=== PATIENT | female | born 1985 | race Caucasian/White ===

== ENCOUNTER → 2018-11-06 | Emergency (ER) | payer BC, OTHER ==
--- NOTE | 2018-11-06 13:46 | ED ---
Lower Extremity - HPI Summary HPI Summary: 33-year-old year old female presents with right ankle and left knee pain today. states that she tripped and twisting her right ankle and fell onto her left knee. She is able to ambulate with pain. She states she inverted her right ankle. Has an abrasion noted to left knee. No head injury or neck or back pain. No other injury. Has no previous fracture to the area. Has no medical conditions. - History of Current Complaint Chief Complaint: EDFall Stated Complaint: RIGHT LEG PAIN Time Seen by Provider: 11/06/18 13:27 Pain Intensity: 5 - Allergies/Home Medications Allergies/Adverse Reactions: Allergies Allergy/AdvReac Type Severity Reaction Status Date / Time Iodine and Iodide Containing Allergy Rash Verified 11/06/18 13:18 Produc latex Allergy Rash Verified 11/06/18 13:18 ALL ADHESIVE Allergy Rash Uncoded 11/06/18 13:18 CEDAR Allergy Difficulty Uncoded 11/06/18 13:18 Breathing PMH/Surg Hx/FS Hx/Imm Hx Endocrine/Hematology History: Reports: Hx Anemia - NO PROBLEMS Denies: Hx Diabetes Cardiovascular History: Denies: Hx Hypertension, Hx Pacemaker/ICD Respiratory History: Reports: Hx Asthma - RESCUE INHALER GI History: Reports: Hx Gastroesophageal Reflux Disease - NOT TAKING ANYTHING NOW History: Denies: Hx Renal Disease Musculoskeletal History: Reports: Hx Back Problems Sensory History: Reports: Hx Contacts or Glasses - GLASSES Denies: Hx Hearing Aid Opthamlomology History: Reports: Hx Contacts or Glasses - GLASSES Neurological History: Reports: Hx Migraine - WEEKLY, Other Neuro Impairments/ Disorders - PAIN CLINIC PT Psychiatric History: Denies: Hx Panic Disorder - Surgical History Surgery Procedure, Year, and Place: 11[place] [facility] [place] [facility] [place] Anesthesia Reactions: No Infectious Disease History: No Infectious Disease History: Denies: Traveled Outside the [place] in Last 30 Days - Social History Alcohol Use: Occasionally Alcohol Amount: 5 Substance Use Type: Reports: None Smoking Status (MU): Never Smoked Tobacco Review of Systems Negative: Fever Negative: Chest Pain Negative: Shortness Of Breath Positive: Myalgia - right ankle and left knee pain All Other Systems Reviewed And Are Negative: Yes Physical Exam Triage Information Reviewed: Yes Vital Signs On Initial Exam: Initial Vitals Temp Pulse Resp BP Pulse Ox 99.3 F 90 18 156/99 100 11/06/18 13:15 05/23/19 13:15 11/06/18 13:15 11/06/18 13:15 11/06/18 13:15 Vital Signs Reviewed: Yes Appearance: Positive: Well-Appearing Skin: Positive: Warm, Dry Head/Face: Positive: Normal Head/Face Inspection Eyes: Positive: Normal, Conjunctiva Clear ENT: Positive: Pharynx normal Respiratory/Lung Sounds: Positive: Clear to Auscultation, Breath Sounds Present Cardiovascular: Positive: Normal, RRR Musculoskeletal: Positive: Limited @ - right ankle, Other - abrasion to left knee, good pulses, tenderness left knee, tenderness medial malleolus right ankle Neurological: Positive: Normal Psychiatric: Positive: Normal Diagnostics - Vital Signs Vital Signs Temp Pulse Resp BP Pulse Ox 11/06/18 13:15 99.3 F 90 18 156/99 100 - Laboratory Lab Statement: Any lab studies that have been ordered have been reviewed, and results considered in the medical decision making process. - Radiology ankle Radiology Interpretation Completed By: Radiologist Summary of Radiographic Findings: IMPRESSION: SOFT TISSUE SWELLING, NO FRACTURE IS SEEN. knee Radiology Interpretation Completed By: Radiologist Summary of Radiographic Findings: IMPRESSION: NO EVIDENCE FOR FRACTURE. Lower Extremity Course/Dx - Course Course Of Treatment: 33-year-old year old female presents with right ankle and knee pain today. states that she tripped and twisting her right ankle and fell onto her left knee. She is able to ambulate with pain. She states she inverted her right ankle. Has an abrasion noted to left knee. No head injury or neck or back pain. No other injury. Has no previous fracture to the area. Has no medical conditions. On exam tenderness over medial aspect of right ankle. Neurovascular intact. Tenderness over left patella. X-ray shows no fracture. told to treat with rice. patient understand and agrees with plan. - Diagnoses Differential Diagnosis/HQI/PQRI: Positive: Fracture (Closed), Sprain, Strain Provider Diagnoses: Right ankle pain, Left knee pain Discharge - Sign-Out/Discharge Documenting (check all that apply): Patient Departure Patient Received Moderate/Deep Sedation with Procedure: No - Discharge Plan Condition: Good Disposition: HOME Patient Education Materials: R.I.C.E. Treatment (ED) Referrals: Allen Monzon MD [Primary Care Provider] - Additional Instructions: Stay off ankle as much as possible Ice, elevate, keep in LIZETH Ibuprofen every 6 hours for pain Follow up with primary if no improvement Return to ED if develop or any new or worsening symptoms - Billing Disposition and Condition Condition: GOOD Disposition: Home
--- OUTSIDE RECORDS SUMMARY | 2018-11-06 14:31 | XMS REPORT | Continuity of Care Document ---
:1985 External Reference #:[id number] Author Name Damián Yip, OD Address [address] [place] [address] Care Team Providers Name Role Phone Allen Monzon MD Care Team Information Junior Buyer Unavailable Nicolás WARNER, Allen Primary Care Physician Unavailable Payers Date Identification Numbers Payment Provider Subscriber Effective: 2012 Policy Number: [id number] /BS [employer] Ppo Fatoumata Douglass PayID: [id number] [address] [address] [place] [address] Problems Active Problems Provider Date Open-angle glaucoma DR. Rosario King O.D. Onset: 07/07/[address] Rosario King O.D. Onset: 08/17/2013 Tear film insufficiency Ryland Clarke M.D. Onset: 08/25/2014 Primary open-angle glaucoma, mild stage Ryland Clarke M.D. Onset: 2014 Superficial punctate keratitis Ryland Clarke M.D. Onset: 12/30/2015 Family History Date Family Member(s) Observation Comments General Cancer General Diabetes General Heart Disease General Brother, Uncle Father Cancer Mother Noncontributory Social History Type Date Description Comments Sex Unknown ETOH Use Occasionally consumes alcohol Tobacco Use Start: Unknown Patient has never smoked Smoking Status Reviewed: 11/04/18 Patient has never smoked Allergies, Adverse Reactions, Alerts Active Allergies Reaction Severity Comments Date Fentanyl 07/07/2013 Seasonal 02/23/2014 Latanoprost 07/07/2018 Medications Active Medications SIG Qnty Indications Ordering Provider Date Combigan one drop twice 15ml Damián Yip, OD 07/07/2018 0.2-0.5% a day both eyes Solution Restasis Multidose 1 drop both 5.5units Damián Yip, OD 06/18/2017 eyes twice a 0.05% Emulsion day Zyrtec Allergy DR. Rosario King, 07/07/2013 O.D. Capsules Sudafed [address] Rosario King, 07/07/2013 O.D. Flexi Joint Unknown Tablets Mucinex Unknown Lyrica Unknown 50mg Capsules History Medications Refresh P.M. 14" ribbon 3.500gm Damián Yip, 05/31/2017 - applied to OD 11/04/2018 Ointment ocular surface every night at bedtime both eyes Refresh P.M. 14" ribbon 3.500gm Damián Phi, 05/30/2017 - applied to OD 05/31/2017 Ointment ocular surface every night at bedtime both eyes Timolol Maleate One drop in both 5units Damián Yip, 05/17/2017 - eyes every OD 07/07/2018 0.5% Solution morning Timolol Maleate 1 drops Qam OU 30ml Ryland Clarke, 04/04/2016 - M.D. 05/17/2017 0.5% Solution Zioptan 1 drops both 30units H40.11x1 Ryland Clarke, 01/27/2016 - 0.0015% eyes every day M.D. 04/04/2016 Solution Latanoprost 1 drops both 7.5ml H52.13 Ryland Clarke, 09/05/2015 - 0.005% eyes every night M.D. 01/28/2017 Solution Latanoprost Instill 1 Drop 2.5units Damián Guillory, 07/07/2013 - 0.005% Into Each Eye O.D. 09/05/2015 Solution Every Night as Directed Vicodin Unknown - Tablets 11/04/2018 Zofran Unknown - Tablets 11/04/2018 Nasonex Unknown - 50mcg/Act 11/04/2018 Suspension Vital Signs Date Vital Result Comment 11/04/2018 2:26pm Intraocular Pressure Right Eye 18 mmHg Intraocular Pressure Left Eye 19 mmHg 08/07/2018 8:44am Intraocular Pressure Right Eye 20 mmHg Intraocular Pressure Left Eye 21 mmHg 07/07/2018 3:07pm Intraocular Pressure Right Eye 23 mmHg Intraocular Pressure Left Eye 24 mmHg 02/24/2018 9:20am Intraocular Pressure Right Eye 23 mmHg Intraocular Pressure Left Eye 23 mmHg 09/30/2017 1:29pm Intraocular Pressure Right Eye 19 mmHg Intraocular Pressure Left Eye 19 mmHg 05/30/2017 9:26am Intraocular Pressure Right Eye 17 mmHg Intraocular Pressure Left Eye 16 mmHg 01/28/2017 9:18am Intraocular Pressure Right Eye 16 mmHg Intraocular Pressure Left Eye 15 mmHg 09/28/2016 10:09am Intraocular Pressure Right Eye 16 mmHg Intraocular Pressure Left Eye 15 mmHg 05/28/2016 8:23am Intraocular Pressure Right Eye 17 mmHg Intraocular Pressure Left Eye 16 mmHg 04/04/2016 9:19am Intraocular Pressure Right Eye 16 mmHg Intraocular Pressure Left Eye 15 mmHg 01/27/2016 3:12pm Intraocular Pressure Right Eye 19 mmHg Intraocular Pressure Left Eye 19 mmHg 12/09/2015 3:28pm Intraocular Pressure Right Eye 19 mmHg Intraocular Pressure Left Eye 19 mmHg 09/05/2015 2:49pm Intraocular Pressure Right Eye 20 mmHg Intraocular Pressure Left Eye 20 mmHg 06/03/2015 11:22am Intraocular Pressure Right Eye 21 mmHg Intraocular Pressure Left Eye 21 mmHg 03/11/2015 3:03pm Intraocular Pressure Right Eye 19 mmHg Intraocular Pressure Left Eye 19 mmHg 12/01/2014 2:12pm Intraocular Pressure Right Eye 18 mmHg Intraocular Pressure Left Eye 19 mmHg 08/25/2014 10:32am Intraocular Pressure Right Eye 19 mmHg Intraocular Pressure Left Eye 20 mmHg 05/25/2014 8:12am Intraocular Pressure Right Eye 18 mmHg Intraocular Pressure Left Eye 18 mmHg 02/23/2014 9:19am Intraocular Pressure Right Eye 17 mmHg Intraocular Pressure Left Eye 18 mmHg 11/16/2013 8:34am Intraocular Pressure Right Eye 14 mmHg Intraocular Pressure Left Eye 16 mmHg Cornea Thickness Left Eye 592 m Cornea Thickness Right Eye 579 m Pachymetry adjusted IOP Right Eye -3 Pachymetry adjusted IOP Left Eye -2 08/17/2013 3:47pm Intraocular Pressure Right Eye 15 mmHg Intraocular Pressure Left Eye 15 mmHg 07/07/2013 8:10am Intraocular Pressure Right Eye 17 mmHg Intraocular Pressure Left Eye 17 mmHg Procedures Date Code Description Status 11/04/2018 49060 Fundus Photography W/Interpretation & Report Completed 11/04/2018 84037 Refraction Completed 11/04/2018 36952 Eye Exam Est Comprehensive Completed 07/07/2018 47536 Oct, Optic Nerve Completed 07/07/2018 82121 Eye Exam Est Intermediate Completed 02/24/2018 44207 Visual Field Exam Extended, Unilateral Or Bilateral Completed 02/24/2018 45841 Eye Exam Est Intermediate Completed 09/30/2017 92255 Fundus Photography W/Interpretation & Report Completed 09/30/2017 66487 Eye Exam Est Intermediate Completed 05/30/2017 20206 Eye Exam Est Intermediate Completed 05/30/2017 88711 Oct, Optic Nerve Completed 01/28/2017 21988 Visual Field Exam Extended, Unilateral Or Bilateral Completed 01/28/2017 96802 Eye Exam Est Intermediate Completed 09/28/2016 79667 Fundus Photography W/Interpretation & Report Completed 09/28/2016 90180 Ophthalmoscopy Subsequent Completed 09/28/2016 01973 Refraction Completed 09/28/2016 19467 Eye Exam Est Comprehensive Completed 05/28/2016 42952 Eye Exam Est Intermediate Completed 04/04/2016 66422 Oct, Optic Nerve Completed 04/04/2016 61166 Eye Exam Est Intermediate Completed 01/27/2016 11145 Eye Exam Est Intermediate Completed 12/30/2015 98985 Eye Exam Est Intermediate Completed 12/09/2015 13219 Visual Field Exam Extended, Unilateral Or Bilateral Completed 12/09/2015 68716 Eye Exam Est Intermediate Completed 09/05/2015 29740 Fundus Photography W/Interpretation & Report Completed 09/05/2015 87551 Refraction Completed 09/05/2015 81427 Eye Exam Est Comprehensive Completed 06/03/2015 23228 Eye Exam Est Intermediate Completed 03/11/2015 40104 Oct, Optic Nerve Completed 03/11/2015 89658 Eye Exam Est Intermediate Completed 12/01/2014 17950 Visual Field Exam Extended, Unilateral Or Bilateral Completed 12/01/2014 63831 Eye Exam Est Intermediate Completed 08/25/2014 99548 Eye Exam Est Comprehensive Completed 08/25/2014 99069 Refraction Completed 08/25/2014 29042 Fundus Photography W/Interpretation & Report Completed 05/25/2014 74320 Eye Exam Est Intermediate Completed 02/23/2014 95690 Oct, Optic Nerve Completed 02/23/2014 09606 Eye Exam Est Intermediate Completed 11/16/2013 79212 Visual Field Exam Extended, Unilateral Or Bilateral Completed 11/16/2013 54530 Eye Exam Est Intermediate Completed 08/17/2013 36182 Fundus Photography W/Interpretation & Report Completed 08/17/2013 92068 Refraction Completed 08/17/2013 77862 Eye Exam Est Comprehensive Completed Encounters Type Date Location Provider Dx Diagnosis Office Visit 08/07/2018 Main Office Damián Yip, OD H40.1131 Primary open-angle 8:30a glaucoma, bilateral, mild stage Office Visit 01/13/2016 Main Office Ryland Clarke, H16.143 Punctate keratitis, 3:45p M.D. bilateral Office Visit 07/07/[address] Rosario King, 365.10 Glaucoma Open Angle 8:00a O.D. Unspec Plan of Treatment 11/04/2018 - Damián Yip, ODH40.1131 Primary open-angle glaucoma, bilateral, mild kjktnA07.123 Dry eye syndrome of bilateral lacrimal [id number] Myopia, bilateralFollow up:3 mos VF, sooner PRN
[2018-11-06 15:30] VITALS: BP 139/76
== END | disposition home or self-care (01) ==
LOC: ED 13:13
DX: M25.571 Pain in right ankle and joints of right foot (principal); M25.562 Pain in left knee; W01.0XXA Fall on same level from slipping, tripping and stumbling without subsequent striking against object, initial encounter; D64.9 Anemia, unspecified; K21.9 Gastro-esophageal reflux disease without esophagitis; J45.909 Unspecified asthma, uncomplicated; Z91.040 Latex allergy status; Z88.8 Allergy status to other drugs, medicaments and biological substances; Z79.51 Long term (current) use of inhaled steroids
CPT/HCPCS: 99282